=== PATIENT | female | born 1990 | race Caucasian/White ===

== ENCOUNTER 2022-04-11 14:52 | Emergency (ER) | payer OTHER, SELFPAY ==
--- NOTE | ~2022-04-11 | XR_ITS ---
EXAM: XR foot RT min 3V DATE: 04/11/2022 15:14 HISTORY: pain rt 5th toe pain s/p catching on a box pt shielded . COMPARISON: None available. FINDINGS: Normal mineralization. Nondisplaced transverse fracture of the proximal aspect of the righ t fifth proximal phalange. No lytic or blastic lesion. Joint spaces are maintained. No erosion or per iosteal change. Soft tissues within normal limits. IMPRESSION: Nondisplaced transverse fracture of the proximal aspect of the right fifth proximal phala nge. Reviewed, dictated and finalized at location K. IMPRESSION: Nondisplaced transverse fracture of the proximal aspect of the righ t fifth proximal phalange.
[2022-04-11 15:03] VITALS: BP 159/109; PULSE 87; RESP 16; TEMP 37; O2SAT 99
--- NOTE | 2022-04-11 15:07 | ED.LOWEXIN ---
HPI - Extremity Injury (Lower) General Chief Complaint: Extremity Injury, Lower Stated Complaint: rt 5th digit toe injury Time Seen by Provider: 04/11/22 15:30 Source: patient and RN notes reviewed Mode of arrival: ambulatory Limitations: no limitations History of Present Illness HPI Narrative: 31-year-old female presents concern for injury to the 5th digit of the right foot. Reports on she could start probiotics. Sports bruising, swelling to the 5th digit. Reports she worries because she walks all day at work. MD complaint: foot injury Related Data Home Medications Medication Instructions Recorded Confirmed norgestimate 0.25 mg-ethinyl tablet 04/11/22 estradiol 35 mcg tablet (Sprintec (28)) semaglutide 0.25 mg or 0.5 mg (2 mg subcut 04/11/22 mg/1.5 mL) subcutaneous pen injector (Ozempic) spironolactone 100 mg tablet mg 04/11/22 Allergies Allergy/AdvReac Type Severity Reaction Status Date / Time No Known Allergies Allergy Verified 04/11/22 15:21 Review of Systems Review of Systems: CONSTITUTIONAL: Denies malaise, chills, sweats, or fever. SKIN: Denies rash or itching, open skin, laceration, abrasion, redness, warmth, swelling. MUSCULOSKELETAL: Reports pain, swelling, bruising to the 5th digit of the right foot NEUROLOGIC: Denies numbness, weakness All systems reviewed & are unremarkable except as noted in HPI and below PMFSH Comments At time of signature, agree with nursing past medical, surgical, social and family history. There is no relevant family history pertinent to the presenting complaint Exam Narrative: GENERAL: Well-appearing, well-nourished, and in no acute distress. HEAD: Normocephalic, atraumatic. EYES: PERRLA, conjunctivae clear NECK: Supple. CHEST: Speaks in full sentences. No respiratory distress. HEART: Regular rate and rhythm. Normal and equal peripheral pulses. EXTREMITIES: 5th digit of left foot has grossly normal strength and sensation, slightly limited range of motion. Mild edema with moderate ecchymosis. 4/5 strength with digit flexion and extension. Normal sensation with sensitivity to light touch and pain. General digit tenderness. No open wounds, no skin tenting, no devitalized tissue or atrophy, no trophic changes, no obvious deformity, alignment normal, nearby joints and structures intact. Distal pulses palpable and equal bilaterally, skin warm, dry, pink. Capillary refill less than 3 seconds. SKIN: Warm, dry, no rash. NEURO: Alert and oriented x3. PSYCH: Normal mood and affect Course Course Emergency Course: Patient is aware of diagnosis, understands and agrees to treatment plan. Anticipatory guidance given. Patient agrees to follow-up as directed and is aware of reasons to seek care at the emergency department. Portions of this record may have been created with voice recognition software Level of Care: Express Care Visit Vital Signs Vital signs: Vital Signs Temperature 98.6 F 04/11/22 15:03 Pulse Rate 87 04/11/22 15:03 Respiratory Rate 16 04/11/22 15:03 Blood Pressure 159/109 H 04/11/22 15:03 Pulse Oximetry 99 04/11/22 15:03 Oxygen Delivery Room Air 04/11/22 15:03 Temperature 98.6 F 04/11/22 15:03 Pulse Rate 87 04/11/22 15:03 Respiratory Rate 16 04/11/22 15:03 Blood Pressure 159/109 H 04/11/22 15:03 Pulse Oximetry 99 04/11/22 15:03 Oxygen Delivery Room Air 04/11/22 15:03 Reviewed. MDM - Extremity Injury (Lower) MDM Narrative Medical decision making narrative: Patients injury and pain is consistent with musculoskeletal etiology. No signs of neurological or vascular compromise on exam. Compartments and tissues are soft without signs of compartment syndrome. Pain is felt appropriate for further evaluation on an outpatient basis. Imaging Data My impression: Images reviewed, interpreted by radiologist, agree, see report. Radiologist's impression: EXAM:? XR foot RT min 3V DATE: 04/11/2022 15:14
== END 2022-04-11 16:28 | disposition home or self-care (01) ==
PROVIDERS: Emergency Provider Nurse Practitioner
DX: S92.514A Nondisplaced fracture of proximal phalanx of right lesser toe(s), initial encounter for closed fracture (principal); X58.XXXA Exposure to other specified factors, initial encounter; I10 Essential (primary) hypertension; M79.7 Fibromyalgia; E28.2 Polycystic ovarian syndrome
CPT/HCPCS: 73630; 99204; G0463